=== PATIENT | female | born 1980 | race Hispanic/Latino ===

== ENCOUNTER → 2019-10-21 | Outpatient (CLI) | payer OTHER ==
[~2019-10-21] MED LIST: IOHEXOL-350 75 ML VIAL IV ONE
== END | disposition home or self-care (01) ==
LOC: RAH 07:57
PROVIDERS: ATTEND Urology
DX: K42.9 Umbilical hernia without obstruction or gangrene (principal); K59.00 Constipation, unspecified; K76.0 Fatty (change of) liver, not elsewhere classified; R31.0 Gross hematuria; Z90.49 Acquired absence of other specified parts of digestive tract
CPT/HCPCS: 74178; Q9967

== ENCOUNTER 2020-03-30 05:43 | Day surgery (SDC) | payer OTHER ==
[2020-03-29 13:27] LABS: BASOPHILS % (AUTO) 0.5 % (0.0-5.0); HEMATOCRIT 40.6 % (36-48); LYMPHOCYTES % (AUTO) 33.2 % (21.0-51.0); MEAN CORPUSCULAR HEMOGLOBIN 28.5 pg (27.0-33.0); MEAN CORPUSCULAR HGB CONC 31.8 g/dL (32.0-36.0); MEAN CORPUSCULAR VOLUME 89.6 fL (79-99); MONOCYTES % (AUTO) 5.5 % (3.0-13.0); NEUTROPHILS % (AUTO) 58.5 % (40.0-77.0); PLATELET COUNT (AUTO) 471 K/uL (130-400); RED BLOOD CELL COUNT(AUTO) 4.53 MIL/uL (4.00-5.50); RED CELL DISTRIBUTION WIDTH 14.8 % (11.0-15.5)
[~2020-03-30] VITALS: Ht 154.9 cm; Wt 79.8 kg
[2020-03-30] VITALS (17 sets, daily range): BP systolic 102–131; BP diastolic 57–77
[~2020-03-30 05:43] MED LIST changes: +ESCI10TA PO; -IOHEXOL-350 75 ML VIAL IV ONE
[2020-03-30] MEDS ORDERED: LACTATED RINGERS 1000ML 1,000 ML IV SCH (06:00)
[2020-03-30] MEDS ORDERED: SUCCINYLCHOLINE CHLORIDE 20 MG/ML 10 ML VIAL ONE (08:22)
[2020-03-30] MEDS ORDERED: ROCURONIUM 10MG/1ML SYR 10 MG/ML ML ONE (08:22)
[2020-03-30] MEDS ORDERED: LIDOCAINE PF 2% 5ML ABBOJECT ONE (08:22)
[2020-03-30] MEDS ORDERED: PROPOFOL 10 MG/ML 20ML VIAL IV ONE (08:22)
[2020-03-30] MEDS ORDERED: FENTANYL CITRATE PF 50 MCG/1 ML 2ML VIAL ONE (08:23)
[2020-03-30] MEDS ORDERED: EPHEDRINE SULFATE 50 MG/ML AMPULE ONE (09:07)
[2020-03-30] MEDS ORDERED: NEOSTIGMINE 5MG/5ML SYR IV ONE (09:37)
[2020-03-30] MEDS ORDERED: GLYCOPYRROLATE 1 MG/5 ML SYRINGE ONE (09:37)
--- NOTE | 2020-03-30 10:55 | NUR ---
POST RECEIVED PT FROM PACU. S/P DIAGNOSTIC LAPAROSCOPY, ABDOMEN WITH BANDAIDS X 2 DRY AND INTACT. PT AWAKE AND ALERT . NO DISTRESS NOTED PT DENIED ANY PAIN OR DISCOMFORTS . VS STABLE ON ARRIVAL. PLAN OF CARE DISCUSS WITH PATIENT. CALL LIGHT WITHIN REACH.
--- NOTE | 2020-03-30 11:25 | NUR ---
DC PT DC HOME VIA WC,NO DISTRESS NOTED. ACCOMPANIED BY MOM. DENIED ANY PAIN OR DISCOMFORTS, RX GIVEN TO PTS MOM
== END 2020-03-30 11:25 | disposition home or self-care (01) ==
LOC: DAH 05:43
PROVIDERS: ATTEND Obstetrics & Gynecology
DX: R10.2 Pelvic and perineal pain (principal); N83.202 Unspecified ovarian cyst, left side; N83.201 Unspecified ovarian cyst, right side; G89.29 Other chronic pain; N73.6 Female pelvic peritoneal adhesions (postinfective); N80.0 Endometriosis of uterus; Z20.828 Contact with and (suspected) exposure to other viral communicable diseases
CPT/HCPCS: 36415 ×2; 49320; 85025; 86850; 86900; 86901; A4215; A4221; A4222; A4223; A4344; A4510; A4600; A4606 ×2; A4649; A4663; A6260; C1769 ×2; C9803; J0330; J2001; J2704; J2710; J3010; J3490 ×2; J7120 ×2; U0003